=== PATIENT | male | born 1990 | race Caucasian/White ===

== ENCOUNTER 2016-09-20 18:41 | Emergency (ER) | payer BC, OTHER ==
[~2016-09-20] VITALS: Ht 182.9 cm; Wt 77.1 kg
[2016-09-20 18:56] VITALS: BP 150/85; PULSE 71; RESP 14; TEMP 98.6; O2SAT 98
--- NOTE | 2016-09-20 19:45 | NUR ---
Placed in room 07 . Placed on coach builder, blood pressure machine and pulse oximeter. To gown for exam. Side rails up. Report given to ROSITA Muhammad.
--- NOTE | 2016-09-20 19:50 | NUR ---
Pt presents to ED for tetanus shot. Pt stated that he indented his forehead against a hannah adam yesterday, and wanted to get tetanus shot. A&Ox4, denies SOb or chestpain, denies N/V/D, no active bleeding. Will continue to monitor
--- NOTE | 2016-09-20 20:15 | NUR ---
MD Emery at bedside examining pt
[2016-09-20] MEDS ORDERED: DIPH-TET-PERTUS Vaccine 0.5 ML VIAL (ADACEL) I.M. ONE (20:30)
[2016-09-20 20:33] VITALS: BP 140/78; PULSE 70; RESP 16; TEMP 98.3; O2SAT 98
--- NOTE | 2016-09-20 20:33 | NUR ---
Patient given written and verbal discharge instructions and verbalizes understanding. ER MD Emery discussed with patient the results and treatment provided. Patient in stable condition. ID arm band removed. No Rx given. Patient educated on pain management and to follow up with PMD. Pain Scale 0/10 Opportunity for questions provided and answered.
== END 2016-09-20 20:33 | disposition home or self-care (01) ==
LOC: SED 18:41
DX: S01.83XA Puncture wound without foreign body of other part of head, initial encounter (principal); I10 Essential (primary) hypertension; W45.0XXA Nail entering through skin, initial encounter; Y93.89 Activity, other specified; Y99.0 Civilian activity done for income or pay; Y92.89 Other specified places as the place of occurrence of the external cause
CPT/HCPCS: 90715; 99283